=== PATIENT | male | born 1995 | race American Indian/Alaskan Native ===

== ENCOUNTER 2021-05-03 18:04 | Emergency (ER) | payer OTHER ==
[2021-05-03 19:25] VITALS: BP 139/74
--- NOTE | 2021-05-03 19:52 | Emergency Department Report ---
ED Extremity Problem HPI - General Chief complaint: Extremity Injury, Lower Stated complaint: RT LEG KNEE Time Seen by Provider: 05/03/21 19:37 Source: patient Mode of arrival: Ambulatory Limitations: No Limitations - History of Present Illness Initial comments: 25-year-old male presents to the ER today with complaints of right knee pain. Patient states that 1 week ago he was playing basketball and noticed some soreness to the lateral aspect of his right knee. He states that at the time it was tolerable. He states that he recently started a new position at his job which required lots of walking and then this past Wednesday he was helping someone move after which he noticed the pain was more intense, and he noticed that every time he took a step his knee would buckle and causing him to have near falls. He reports swelling to the knee. He states that pain is worse with weightbearing, flexion and extension. He has been taking Advil with mild relief. He denies any prior injury or surgeries to his knee. He reports no additional symptoms at this time. MD Complaint: joint swelling (Right knee ), joint paint (Right knee) -: week(s) (1 week ago ) Location: right - Related Data Previous Rx's Medication Instructions Recorded Last Taken Type Acetaminophen/Codeine [Tylenol 1 tab PO Q6H PRN #12 tab 05/03/21 Unknown Rx /Codeine # 3 tab] Ibuprofen [Motrin] 800 mg PO Q8HR PRN #30 tablet 05/03/21 Unknown Rx Allergies Allergy/AdvReac Type Severity Reaction Status Date / Time No Known Allergies Allergy Unverified 05/03/21 19:34 ED Review of Systems ROS: Stated complaint: RT LEG KNEE Other details as noted in HPI Comment: All other systems reviewed and negative Constitutional: denies: chills, fever Eyes: denies: eye pain, eye discharge, vision change ENT: denies: ear pain, throat pain, dental pain, hearing loss, epistaxis, co ngestion Respiratory: denies: cough, shortness of breath, SOB with exertion, SOB at rest, wheezing Cardiovascular: denies: chest pain, palpitations, dyspnea on exertion Gastrointestinal: denies: abdominal pain, nausea, diarrhea Genitourinary: denies: urgency, dysuria, frequency, hematuria, discharge, testicular pain, testicular mass Musculoskeletal: joint swelling, arthralgia Skin: denies: rash, lesions, change in color, change in hair/nails, pruritus Neurological: denies: headache, weakness, numbness, paresthesias, confusion, vertigo Psychiatric: denies: anxiety, depression, auditory hallucinations, visual hallucinations, homicidal thoughts, suicidal thoughts Hematological/Lymphatic: denies: easy bleeding, easy bruising, swollen glands ED Past Medical Hx - Past Medical History Previous Medical History?: No - Surgical History Past Surgical History?: No - Social History Smoking Status: Current Every Day Smoker Substance Use Type: Marijuana - Medications Home Medications: Home Medications Medication Instructions Recorded Confirmed Last Taken Type Acetaminophen/Codeine [Tylenol 1 tab PO Q6H PRN #12 tab 05/03/21 Unknown Rx /Codeine # 3 tab] Ibuprofen [Motrin] 800 mg PO Q8HR PRN #30 tablet 05/03/21 Unknown Rx ED Physical Exam - General Limitations: No Limitations General appearance: alert, in no apparent distress - Head Head exam: Present: atraumatic, normocephalic, normal inspection - Eye Eye exam: Present: normal appearance, PERRL, EOMI Pupils: Present: normal accommodation - Neck Neck exam: Present: normal inspection, full ROM - Respiratory Respiratory exam: Present: normal lung sounds bilaterally. Absent: respiratory distress, wheezes, rales, rhonchi - Cardiovascular Cardiovascular Exam: Present: regular rate, normal rhythm, normal heart sounds - Expanded Lower Extremity Exam Right Knee exam: Present: full ROM (But with some mild pain), tenderness (Lateral aspect of the knee), swelling (Mild), full knee extension. Absent: abrasion, laceration, ecchymosis, deformity, crepidus, dislocation, erythema, effusion, posterior draw sign, pain/laxity with valgus, pain/laxity with varus Lower Leg exam: Present: normal inspection, full ROM. Absent: tenderness Ankle exam: Present: normal inspection, full ROM. Absent: tenderness Foot/Toe exam: Present: normal inspection, full ROM. Absent: tenderness Neuro vascular tendon exam: Present: no vascular compromise. Absent: motor deficit, sensory deficit - Neurological Exam Neurological exam: Present: alert, oriented X3, CN II-XII intact - Psychiatric Psychiatric exam: Present: normal affect, normal mood ED Course Vital Signs 05/03/21 19:16 Temperature 98.6 F Pulse Rate 74 Respiratory 18 Rate Blood Pressure 139/74 O2 Sat by Pulse 100 Oximetry ED Medical Decision Making - Radiology Data Radiology results: report reviewed Patient: TONY LUNSFORD MR#: [id number] : 1995 Acct:[id number] Age/Sex: 25 / M ADM Date: 05/03/21 Loc: ED Attending Dr: Ordering Physician: DONNIE POOLE Date of Service: 05/03/21 Procedure(s): XR knee 3V RT Accession Number(s): [id number] cc: DONNIE POOLE Fluoro Time In Minutes: RIGHT KNEE 3 VIEWS INDICATION / CLINICAL INFORMATION: Right knee pain and swelling. COMPARISON: None available. FINDINGS: BONES / JOINT(S): There are moderate tricompartmental degenerative changes. There is a small to moderate suprapatellar joint effusion. There is no evidence of acute fracture, subluxation or destructive lesion. SOFT TISSUES: No significant abnormality. ADDITIONAL FINDINGS: None. Signer Name: Jung Peralta MD Signed: 05/03/2021 8:35 PM Workstation Name: [id number] Transcribed By: RT Dictated By: Jung Peralta MD Electronically Authenticated By: Jung Peralta MD Signed Date/Time: 05/03/212034 DD/ 33 TD/TT: Critical care attestation.: If time is entered above; I have spent that time in minutes in the direct care of this critically ill patient, excluding procedure time. ED Disposition Clinical Impression: Right knee DJD, Effusion of knee Disposition: 01 HOME / SELF CARE / HOMELESS Is pt being admited?: No Does the pt Need Aspirin: No Condition: Stable Instructions: Knee Effusion, Arthritis, [id number] Additional Instructions: Recommend that you take the ibuprofen and the Tylenol threes as prescribed. Recommend that you do the Barney wrap as discussed so you can get one of the knee braces from [id number]. It is important that you follow-up with parts specialist, one will be provided for you on your discharge instructions and recommend that you call for an appointment next week. Elevate your leg as often as possible. Return to the ER if your symptoms changes or worsens in any way. Prescriptions: Ibuprofen [Motrin] 800 mg PO Q8HR PRN #30 tablet PRN Reason: pain Acetaminophen/Codeine [Tylenol /Codeine # 3 tab] 1 tab PO Q6H PRN #12 tab PRN Reason: Pain Referrals: JUNG LEONARD MD [Staff Physician] - 3-5 Days Forms: Work/School Release Form(ED) Time of Disposition: 20:58 Print Language: IRISH
--- NOTE | 2021-05-03 20:39 | XRay Report ---
RIGHT KNEE 3 VIEWS INDICATION / CLINICAL INFORMATION: Right knee pain and swelling. COMPARISON: None available. FINDINGS: BONES / JOINT(S): There are moderate tricompartmental degenerative changes. There is a small to moder ate suprapatellar joint effusion. There is no evidence of acute fracture, subluxation or destructive lesion. SOFT TISSUES: No significant abnormality. ADDITIONAL FINDINGS: None. Signer Name: Semaj Peralta MD Signed: 05/03/2021 8:35 PM Workstation Name: [id number]
== END 2021-05-03 21:40 | disposition home or self-care (01) ==
LOC: ED 18:04
DX: M17.12 Unilateral primary osteoarthritis, left knee (principal); M25.462 Effusion, left knee
CPT/HCPCS: 99283